=== PATIENT | male | born 1955 | race Caucasian/White ===

== ENCOUNTER 2018-12-07 08:58 | Emergency (ER) | payer OTHER ==
--- NOTE | 2018-12-07 09:02 | ER Report ---
History and Physical Time Seen By MD: 09:01 HPI/ROS CHIEF COMPLAINT: Left hand infection HISTORY OF PRESENT ILLNESS: Patient is a 63-year-old male here with complaints of hand swelling, erythema status post trigger finger surgery on Saturday with Dr. Beckman. Patient was seen yesterday in [place] emergency department where he received Keflex 1 g and a subsequent dose of 500 mg. Patient reports that the rash has spread proximally and the swelling is increased in spite of being treated. Patient is afebrile, hemodynamically stable at time of evaluation. Neurovascular exam is intact REVIEW OF SYSTEMS: Constitutional: No fever, no chills. Musculoskeletal: + Erythema and edema of the left distal upper extremity extending to the wrist Skin: Erythema of the left hand Neurological: Neurovascular exam intact Allergies: Coded Allergies: No Known Drug Allergies (Unverified , 12/07/18) Home Meds Active Scripts Ondansetron 4 Mg Odt (ONDANSETRON 4 MG ODT) 4 Mg Tab.rapdis, 4 MG PO ONCE, #30 TAB Prov:DEANNE SEPULVEDA DO 12/07/18 Doxycycline Hyclate (DOXYCYCLINE HYCLATE) 100 Mg Tablet, 100 MG PO BID for 7 Days, #14 TAB Prov:DEANNE SEPULVEDA DO 12/07/18 Constitutional Vital Sign - Last 24 Hours 12/07/18 12/07/18 12/07/18 12/07/18 08:58 09:03 09:06 09:28 Temp 97.8 Pulse ??? 86 Resp 20 B/P (MAP) 130/86 (101) 130/86 Pulse Ox 93 90 O2 Delivery Room Air 12/07/18 12/07/18 09:58 10:29 Pulse 88 87 B/P (MAP) 119/75 (90) Pulse Ox 92 91 Intake and Output 12/07/18 12/07/18 12/08/18 15:00 23:00 07:00 Intake Total 50 ml Balance 50 ml Physical Exam General Appearance: The patient is alert, has no immediate need for airway p rotection and no signs of toxicity. No acute distress Neurological: Neurovascular exam intact Skin: Erythema and edema present in the left hand and proximal wrist Musculoskeletal: Tenderness on palpation of the left hand with edema and mild erythema. DIFFERENTIAL DIAGNOSIS: After history and physical exam differential diagnosis was considered for cellulitis, abscess, postsurgical infection Medical Decision Making ED Course/Re-evaluation ED Course Patient is a 63-year-old male here status post trigger finger surgery by . Patient was evaluated yesterday in separate emergency department and given Keflex without complete resolution of erythema. I discussed the patient with who was the on-call orthopedist who recommended clindamycin and outpatient treatment with doxycycline to broaden antimicrobial coverage. I performed a bedside ultrasound and did not see any signs of abscess formation. There was cobblestoning present in the sub-cutaneous tissue consistent with cellulitic changes. Patient was given an IV dose of clindamycin and prescription for doxycycline. There were no signs of flexor compartment infection.. Patient was also given a prescription for ondansetron as he is having trouble tolerating his oral pain medications at home. Patient will follow up with Dr. Beckman tomorrow for outpatient follow-up. Return precautions provided. Decision to Disposition Date: Dec 07, 2018 Decision to Disposition Time: 10:18 Depart Departure Latest Vital Signs Vital Signs Date Time Temp Pulse Resp B/P (MAP) Pulse Ox O2 Delivery O2 Flow Rate FiO2 12/07/18 10:29 87 119/75 (90) 91 12/07/18 09:06 97.8 20 Room Air Impression: Primary Impression: Cellulitis Condition: Improved Disposition: HOME OR SELF-CARE New Scripts Ondansetron 4 Mg Odt (ONDANSETRON 4 MG ODT) 4 Mg Tab.rapdis 4 MG PO ONCE, #30 TAB Prov: DEANNE SEPULVEDA DO 12/07/18 Doxycycline Hyclate (DOXYCYCLINE HYCLATE) 100 Mg Tablet 100 MG PO BID for 7 Days, #14 TAB Prov: DEANNE SEPULVEDA DO 12/07/18 Patient Instructions: Cellulitis (DC) Additional Instructions: Please drink plenty of water. Please discontinue Keflex and start taking doxycycline 100 mg twice daily. You may take Zofran 1 tab every 4-6 hours as needed for nausea and vomiting. Please continue your other medications as prescribed. Please return immediately if you develop fevers, increased swelling and increased rash, streaking of the rash appear arm in spite of taking the antibiotic. Please call your orthopedic surgeon tomorrow. DEANNE SEPULVEDA DO Dec 07, 2018 09:02
[2018-12-07] MEDS ORDERED: CLINDAMYCIN(*) 600 MG/NS 50 ML 50 ML IVPB ONE (09:15)
[2018-12-07] MEDS ORDERED: MORPHINE 4 MG/ML SDV IVP ONE (09:30)
[2018-12-07] MEDS ORDERED: DOXY-179 PO (09:59)
[2018-12-07] MEDS ORDERED: ONDA4TAB9 PO (10:19)
[2018-12-07] MEDS ORDERED: ONDANSETRON 4 MG ODT TH SL ONE (10:20)
[2018-12-07 10:29] VITALS: BP 119/75
== END 2018-12-07 10:36 | disposition home or self-care (01) ==
LOC: ER 09:06
DX: L03.114 Cellulitis of left upper limb (principal)
CPT/HCPCS: 96365; 96375; 99284; J2270; J3490; S0119